=== PATIENT | female | born 2000 | race African-American/Black ===

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

== ENCOUNTER 2022-07-05 01:16 | Inpatient (IN) | payer OTHER ==
[~2022-07-05] VITALS: Ht 170.2 cm; Wt 75.0 kg
[~2022-07-05 01:16] MED LIST: DULO1CAP4 PO; VITA1CAP25 PO
[2022-07-05 02:40] LABS: HEMATOCRIT 37.2 % (36.0-47.0); HEMOGLOBIN 11.9 g/dl (12.0-15.5); MEAN CORPUSCULAR HEMOGLOBIN 28.2 pg (27.0-33.0); MEAN CORPUSCULAR VOLUME 88.2 fl (80.0-96.0); PLATELET COUNT, AUTOMATED 257 10^3/uL (150-450); RED BLOOD COUNT 4.22 10^6/uL (4.00-5.40); WHITE BLOOD COUNT 3.5 10^3/uL (4.0-10.0)
[2022-07-05 03:02] LABS: AMPHETAMINES LEVEL URINE NEGATIVE (NEGATIVE); BARBITURATES URINE NEGATIVE (NEGATIVE); BENZODIAZEPINES URINE NEGATIVE (NEGATIVE); COCAINE METABOLITE URINE NEGATIVE (NEGATIVE); METHADONE URINE NEGATIVE (NEGATIVE); OPIATES URINE NEGATIVE (NEGATIVE); PHENCYCLIDINE URINE NEGATIVE (NEGATIVE)
[2022-07-05 03:04] LABS: ETHYL ALCOHOL (ETHANOL) 0.025 % (0.000-0.010)
[2022-07-05 03:05] LABS: SALICYLATE LEVEL < 3.0 MG/DL (<30)
[2022-07-05 03:06] LABS: ACETAMINOPHEN LEVEL < 2.0 UG/ML (10.0-20.0); ALBUMIN 4.2 G/DL (3.2-5.2); ALKALINE PHOSPHATASE 58 U/L (46-116); ALT/SGPT 15 U/L (7.0-40); AST/SGOT 15 U/L (<34); BILIRUBIN,DIRECT 0.2 MG/DL (<0.4); BILIRUBIN,TOTAL 0.6 MG/DL (0.3-1.2); BLOOD UREA NITROGEN 9 MG/DL (9-23); CALCIUM LEVEL 9.1 MG/DL (8.5-10.1); CARBON DIOXIDE LEVEL 25 MMOL/L (20-31); CHLORIDE LEVEL 106 MMOL/L (98-107); CREATININE FOR GFR 0.74 MG/DL (0.55-1.30); GLUCOSE, FASTING 86 MG/DL (60-100); POTASSIUM SERUM 4.1 MMOL/L (3.5-5.1); SODIUM LEVEL 137 MMOL/L (136-145); TOTAL PROTEIN 7.4 G/DL (5.7-8.2)
[2022-07-05 03:08] LABS: THYROID STIMULATING HORMONE 1.722 uIU/ML (0.48-4.17)
[2022-07-05 03:13] LABS: CANNABINOIDS URINE POSITIVE (NEGATIVE)
[2022-07-05] MEDS ORDERED: HOME MED LIST COMPLETE! XX SCH (08:10)
[2022-07-05] MEDS: THIAMINE 100 MG TAB PO SCH ×2 (09:00→22:02)
[2022-07-05] MEDS: NICOTINE 21MG/24HR 1 EA TRANSDERMAL TD SCH (09:00)
[2022-07-05 09:20] LABS: HCG, SERUM QUALITATIVE NEGATIVE (NEGATIVE)
[2022-07-05] MEDS ORDERED: traZODone 50 MG TAB PO PRN (12:15)
[2022-07-05] MEDS ORDERED: MOM 30ML SUSPENSION UDC PO PRN (12:15)
[2022-07-05] MEDS ORDERED: IBUPROFEN 400MG TAB PO PRN (12:15)
[2022-07-05] MEDS ORDERED: LORazepam 2 MG TAB PO PRN (12:15)
[2022-07-05] MEDS ORDERED: MAALOX 30 ML SUSP *UDC PO PRN (12:15)
[2022-07-05] MEDS ORDERED: diphenhydrAMINE 25MG CAP PO PRN (12:15)
[2022-07-05] MEDS ORDERED: ACETAMINOPHEN TAB 650MG DOSE (2X325MG) PO PRN (12:15)
[2022-07-05 18:48] VITALS: BP 128/78
[2022-07-05 18:49] VITALS: BP 128/78
[2022-07-05] MEDS: MULTIVITAMINS/MINERALS THERAP 1 TAB PO SCH (19:19)
[2022-07-05] MEDS: FOLIC ACID 1MG TAB PO SCH (19:19)
[2022-07-06 06:26] VITALS: BP 128/59
[2022-07-06] MEDS: NICOTINE 21MG/24HR 1 EA TRANSDERMAL TD SCH (09:00)
[2022-07-06] MEDS: FOLIC ACID 1MG TAB PO SCH (09:13)
[2022-07-06] MEDS: THIAMINE 100 MG TAB PO SCH ×2 (09:13→20:25)
[2022-07-06] MEDS: MULTIVITAMINS/MINERALS THERAP 1 TAB PO SCH (09:13)
[2022-07-06 14:27] VITALS: BP 131/70
[2022-07-06 16:08] VITALS: BP 131/70
[2022-07-06 22:27] VITALS: BP 117/82
[2022-07-07 06:16] VITALS: BP 107/56
[2022-07-07] MEDS ORDERED: NICO21PAT TD (08:15)
[2022-07-07] MEDS ORDERED: TRAZ-252 PO (08:15)
[2022-07-07] MEDS: NICOTINE 21MG/24HR 1 EA TRANSDERMAL TD SCH (09:00)
[2022-07-07] MEDS: MULTIVITAMINS/MINERALS THERAP 1 TAB PO SCH (09:56)
[2022-07-07] MEDS: FOLIC ACID 1MG TAB PO SCH (09:56)
== END 2022-07-07 10:00 | disposition home or self-care (01) | DRG 881 ==
LOC: EDBD 01:16 → EDSEX 01:16 → M ED 01:16 → M ED INP 12:12 → M PSY 17:13
PROVIDERS: ADMIT Student in an Organized Health Care Education/Training Program; ATTEND Student in an Organized Health Care Education/Training Program
DX: F43.21 Adjustment disorder with depressed mood (principal); R45.851 Suicidal ideations; F12.90 Cannabis use, unspecified, uncomplicated; F10.10 Alcohol abuse, uncomplicated

== ENCOUNTER 2022-12-01 06:45 | Emergency (ER) | payer OTHER ==
[~2022-12-01] VITALS: Ht 167.6 cm; Wt 75.0 kg
[2022-12-01 06:45] VITALS: BP 123/81; TEMP 97; O2SAT 100
[~2022-12-01 06:45] MED LIST changes: +NICO21PAT TD; +TRAZ-252 PO
== END 2022-12-01 10:16 | disposition left against medical advice (07) ==
LOC: M ED 06:45
DX: Z53.21 Procedure and treatment not carried out due to patient leaving prior to being seen by health care provider (principal)

== ENCOUNTER 2022-12-01 16:31 | Emergency (ER) | payer OTHER ==
[~2022-12-01] VITALS: Ht 167.6 cm; Wt 76.5 kg
[2022-12-01 16:32] VITALS: BP 113/64; TEMP 98.6; O2SAT 100
== END 2022-12-01 18:20 | disposition left against medical advice (07) ==
LOC: M ED 16:31
DX: Z53.21 Procedure and treatment not carried out due to patient leaving prior to being seen by health care provider (principal)

== ENCOUNTER → 2022-12-02 | Outpatient (CLI) | payer OTHER | LOC: M WUC 11:17 | PROVIDERS: ATTEND Physician Assistant | DX: S73.191A Other sprain of right hip, initial encounter (principal); S39.012A Strain of muscle, fascia and tendon of lower back, initial encounter; W18.30XA Fall on same level, unspecified, initial encounter; Y92.009 Unspecified place in unspecified non-institutional (private) residence as the place of occurrence of the external cause ==

== ENCOUNTER 2023-01-29 18:15 | Emergency (ER) | payer OTHER ==
[~2023-01-29] VITALS: Ht 170.2 cm; Wt 74.9 kg
[2023-01-29 19:00] VITALS: BP 124/81; TEMP 97.6; O2SAT 100
[2023-01-29] MEDS ORDERED: KETOROLAC 30 MG/ML 1ML VIAL IV ONE (19:10)
[2023-01-29 19:19] LABS: EOS # 0.2 10^3/uL (0.0-0.5); EOS % 4.2 % (0.0-3.0); HEMATOCRIT 40.5 % (36.0-47.0); HEMOGLOBIN 13.3 g/dl (12.0-15.5); LYMPH # 1.8 10^3/uL (1.5-5.0); LYMPH % 45.5 % (24.0-44.0); MEAN CORPUSCULAR HEMOGLOBIN 28.5 pg (27.0-33.0); MEAN CORPUSCULAR HGB CONC 32.8 g/dl (32.0-36.5); MEAN CORPUSCULAR VOLUME 86.7 fl (80.0-96.0); MONO # 0.3 10^3/uL (0.0-0.8); MONO % 6.2 % (2.0-8.0); NEUTROPHILS # 1.7 10^3/uL (1.5-8.5); NEUTROPHILS % 43.1 % (36.0-66.0); PLATELET COUNT, AUTOMATED 264 10^3/uL (150-450); RED BLOOD COUNT 4.67 10^6/uL (4.00-5.40)
[2023-01-29 19:39] LABS: AMPHETAMINES LEVEL URINE NEGATIVE (NEGATIVE); BARBITURATES URINE NEGATIVE (NEGATIVE); BENZODIAZEPINES URINE NEGATIVE (NEGATIVE)
[2023-01-29 19:40] LABS: COCAINE METABOLITE URINE NEGATIVE (NEGATIVE); METHADONE URINE NEGATIVE (NEGATIVE); OPIATES URINE NEGATIVE (NEGATIVE); PHENCYCLIDINE URINE NEGATIVE (NEGATIVE)
[2023-01-29 19:41] LABS: ETHYL ALCOHOL (ETHANOL) 0.003 % (0.000-0.010)
[2023-01-29 19:42] LABS: CANNABINOIDS URINE POSITIVE (NEGATIVE)
[2023-01-29 19:43] LABS: BLOOD UREA NITROGEN 8 MG/DL (9-23); CALCIUM LEVEL 9.1 MG/DL (8.5-10.1); CARBON DIOXIDE LEVEL 24 MMOL/L (20-31); CHLORIDE LEVEL 102 MMOL/L (98-107); CREATININE FOR GFR 0.71 MG/DL (0.55-1.30); GLUCOSE, FASTING 80 MG/DL (60-100); POTASSIUM SERUM 4.4 MMOL/L (3.5-5.1); SODIUM LEVEL 135 MMOL/L (136-145)
== END 2023-01-29 21:19 | disposition home or self-care (01) ==
LOC: EDBD 18:15 → M ED 18:15
DX: S06.300A Unspecified focal traumatic brain injury without loss of consciousness, initial encounter (principal); W22.8XXA Striking against or struck by other objects, initial encounter; F17.200 Nicotine dependence, unspecified, uncomplicated; F10.10 Alcohol abuse, uncomplicated; F32.A Depression, unspecified; F41.9 Anxiety disorder, unspecified; Y92.9 Unspecified place or not applicable; Y93.89 Activity, other specified; Y99.1 Military activity
CPT/HCPCS: 70450; 72125; 80048; 80307; 82077; 84702; 85025; 96374; 99284; J1885

== ENCOUNTER 2023-05-15 23:35 | Emergency (ER) | payer OTHER, SELFPAY ==
[2023-05-16 00:32] LABS: CK-MB VALUE MASS < 1.0 NG/ML (<3.6)
[2023-05-16 00:34] LABS: ALBUMIN 3.9 G/DL (3.2-5.2); ALKALINE PHOSPHATASE 49 U/L (46-116); ALT/SGPT 12 U/L (7.0-40); AST/SGOT 8 U/L (<34); BILIRUBIN,TOTAL 0.7 MG/DL (0.3-1.2); BLOOD UREA NITROGEN 12 MG/DL (9-23); CALCIUM LEVEL 8.7 MG/DL (8.5-10.1); CARBON DIOXIDE LEVEL 26 MMOL/L (20-31); CHLORIDE LEVEL 108 MMOL/L (98-107); CPK CREATINE PHOSPHOKINASE 122 U/L (34-145); CREATININE FOR GFR 0.84 MG/DL (0.55-1.30); GLUCOSE, FASTING 140 MG/DL (60-100); MB/CK RELATIVE INDEX 0.81 (< OR =4); SODIUM LEVEL 139 MMOL/L (136-145); TOTAL PROTEIN 6.7 G/DL (5.7-8.2)
[2023-05-16 00:39] LABS: BASO % 0.7 % (0.0-1.0); EOS # 0.2 10^3/uL (0.0-0.5); EOS % 5.2 % (0.0-3.0); HEMATOCRIT 35.4 % (36.0-47.0); HEMOGLOBIN 11.5 g/dl (12.0-15.5); LYMPH # 1.4 10^3/uL (1.5-5.0); LYMPH % 31.9 % (24.0-44.0); MEAN CORPUSCULAR HEMOGLOBIN 29.2 pg (27.0-33.0); MEAN CORPUSCULAR HGB CONC 32.5 g/dl (32.0-36.5); MEAN CORPUSCULAR VOLUME 89.8 fl (80.0-96.0); MONO # 0.3 10^3/uL (0.0-0.8); MONO % 6.3 % (2.0-8.0); NEUTROPHILS # 2.5 10^3/uL (1.5-8.5); NEUTROPHILS % 55.7 % (36.0-66.0); PLATELET COUNT, AUTOMATED 211 10^3/uL (150-450); RED BLOOD COUNT 3.94 10^6/uL (4.00-5.40); WHITE BLOOD COUNT 4.5 10^3/uL (4.0-10.0)
[2023-05-16 00:44] LABS: INR 1.08; PARTIAL THROMBOPLASTIN TIME 24.8 SECONDS (24.8-34.2); PROTHROMBIN TIME 13.7 SECONDS (12.5-14.5)
[2023-05-16 05:08] LABS: LIPASE 24 U/L (12-53)
[2023-05-16 05:10] LABS: ALBUMIN 3.8 G/DL (3.2-5.2); ALKALINE PHOSPHATASE 45 U/L (46-116); ALT/SGPT 11 U/L (7.0-40); AST/SGOT 11 U/L (<34); BILIRUBIN,DIRECT 0.2 MG/DL (<0.4); BILIRUBIN,TOTAL 0.5 MG/DL (0.3-1.2); TOTAL PROTEIN 6.4 G/DL (5.7-8.2)
[2023-05-16 05:16] LABS: HCG, SERUM QUALITATIVE NEGATIVE (NEGATIVE)
[2023-05-16] MEDS ORDERED: TIZA10TA PO (07:53)
[2023-05-16] MEDS ORDERED: HOME MED LIST COMPLETE! XX SCH (07:55)
[2023-05-16 08:25] VITALS: BP 100/61; TEMP 97.3; O2SAT 98
== END 2023-05-16 08:34 | disposition home or self-care (01) ==
LOC: M ED 23:35
DX: S39.011A Strain of muscle, fascia and tendon of abdomen, initial encounter (principal); X50.0XXA Overexertion from strenuous movement or load, initial encounter; Y92.9 Unspecified place or not applicable; Y93.9 Activity, unspecified; Y99.9 Unspecified external cause status; F32.A Depression, unspecified; F41.9 Anxiety disorder, unspecified